=== PATIENT | female | born 1995 ===

== ENCOUNTER 2017-05-12 20:02 | Emergency (ER) | payer MEDICAID ==
[2017-05-12 20:02] VITALS: BMI 33.3
[2017-05-12 20:19] VITALS: BP 123/76; PULSE 108; RESP 18; TEMP 98.7; O2SAT 99
--- NOTE | 2017-05-12 21:15 | ED PDOC ---
HPI: Abdomen Time Seen by Provider: 05/12/17 20:50 Chief Complaint (Nursing): GI Problem Chief Complaint (Provider): vomiting History Per: Patient History/Exam Limitations: no limitations Onset/Duration Of Symptoms: Days (1) Current Symptoms Are (Timing): Still Present Location Of Pain/Discomfort: Epigastric, LUQ Quality Of Discomfort: Sharp, "Pain" Associated Symptoms: Nausea, Vomiting Additional History Per: Patient Additional Complaint(s): 21 y/o female presents for eval of multiple vomiting episodes today. Associated generalized abdominal cramping, multiple diarrhea episodes in the morning. Denies fever, chest pain, dysuria, hematuria, vaginal discharge. Last Menstral Period: current Past Medical History Reviewed: Historical Data, Nursing Documentation, Vital Signs Vital Signs: Last Vital Signs Temp 98.7 F 05/12/17 20:16 Pulse 108 H 05/12/17 20:16 Resp 18 05/12/17 20:16 BP 123/76 05/12/17 20:16 Pulse Ox 99 05/12/17 22:17 - Medical History PMH: No Chronic Diseases - Surgical History Surgical History: - Family History Family History: States: Unknown Family Hx - Home Medications Home Medications: Ambulatory Orders Medication Instructions Recorded Docusate Sodium/Ferrous Fumara 1 tab PO DAILY #30 tab 10/01/16 [Michi-Sequels 100 mg -150 mg] Ibuprofen [Motrin Tab] 800 mg PO Q8 PRN #30 tab 10/01/16 oxyCODONE/Acetaminophen [Percocet 1 ea PO Q4 PRN #24 tab 10/01/16 5/325 mg Tab] Dicyclomine [Bentyl] 20 mg PO TID #15 tab 05/12/17 Famotidine [Pepcid] 20 mg PO BID #10 tab 05/12/17 Ondansetron ODT [Zofran ODT] 4 mg PO Q8 PRN #10 odt 05/12/17 - Allergies Allergies/Adverse Reactions: Allergies Allergy/AdvReac Type Severity Reaction Status Date / Time Penicillins Allergy ITCHING Verified 09/27/16 07:39 Review of Systems ROS Statement: Except As Marked, All Systems Reviewed And Found Negative Gastrointestinal: Positive for: Nausea, Vomiting, Abdominal Pain, Diarrhea Physical Exam - Reviewed Nursing Documentation Reviewed: Yes Vital Signs Reviewed: Yes - Physical Exam Appears: Positive for: Well, Non-toxic, No Acute Distress Head Exam: Positive for: ATRAUMATIC, NORMAL INSPECTION, NORMOCEPHALIC Skin: Positive for: Normal Color Eye Exam: Positive for: Normal appearance ENT: Positive for: Normal ENT Inspection Cardiovascular/Chest: Positive for: Regular Rate, Rhythm Respiratory: Positive for: Normal Breath Sounds Gastrointestinal/Abdominal: Positive for: Bowel Sounds, Soft, Tenderness ( epigastric) Back: Positive for: Normal Inspection Extremity: Positive for: Normal ROM Neurologic/Psych: Positive for: Alert, Oriented - Laboratory Results Result Diagrams: 05/12/17 21:29 05/12/17 21:29 - ECG O2 Sat by Pulse Oximetry: 99 - Progress ED Course And Treament: labs, urine, IV fluids, IV pepcid, IV zofran On re-eval, patient tolerating PO. Patient educated on findings, discharged with rx Zofran, Pepcid, Bentyl. Advised fluids, bland diet. follow up PMD 2-3 days. Return ot ED for worsening/concerning symptoms. Disposition - Clinical Impression Clinical Impression: Gastroenteritis - Patient ED Disposition Is Patient to be Admitted: No Counseled Patient/Family Regarding: Studies Performed, Diagnosis, Need For Followup, Rx Given - Disposition Disposition: Routine/Home Disposition Time: 23:02 Condition: IMPROVED Prescriptions: Dicyclomine [Bentyl] 20 mg PO TID #15 tab Famotidine [Pepcid] 20 mg PO BID #10 tab Ondansetron ODT [Zofran ODT] 4 mg PO Q8 PRN #10 odt PRN Reason: Nausea/Vomiting Instructions: Gastroenteritis (ED) Print Language: NEPALI
[2017-05-12 21:39] LABS: BASO % 0.1 % (0.0-2.0); EOS % 0.4 % (0.0-4.0); HEMOGLOBIN 12.8 g/dL (12.0-16.0); LYMPH # 0.8 K/uL (1.0-4.3); LYMPH % 7.5 % (20.0-40.0); MEAN CELL VOLUME 78.5 fl (81.0-99.0); MEAN CORPUSCULAR HEMOGLOBIN 25.6 pg (27.0-31.0); MEAN CORPUSCULAR HGB CONC 32.6 g/dL (33.0-37.0); MEAN PLATELET VOLUME 8.5 fl (7.2-11.7); MONO # 0.7 K/uL (0.0-0.8); MONO % 6.5 % (0.0-10.0); NEUT # 9.6 K/uL (1.8-7.0); NEUT % 85.5 % (50.0-75.0); PLATELET COUNT 241 K/uL (130-400); RBC 4.99 Mil/uL (3.80-5.20); RED CELL DISTRIBUTION WIDTH 14.6 % (11.5-14.5); WHITE BLOOD COUNT 11.3 K/uL (4.8-10.8)
[2017-05-12 21:42] LABS: ALB/GLOB RATIO 1.3 (1.0-2.1); ALBUMIN 4.6 g/dL (3.5-5.0); ALT/SGPT 30 U/L (9-52); AST/SGOT 23 U/L (14-36); BLOOD UREA NITROGEN 14 mg/dl (7-17); CALCIUM 9.3 mg/dL (8.4-10.2); GFR AFRICAN-AMERICAN > 60; GFR NON-AFRICAN AMERICAN > 60; LIPASE 38 U/L (23-300)
[2017-05-12] MEDS: Sodium Chloride 0.9% 1,000 ML IV STA (21:45)
[2017-05-12 21:50] LABS: SQUAMOUS EPITHIAL 1 /hpf (0-5); URINE BILIRUBIN NEGATIVE (NEGATIVE); URINE BLOOD MODERATE (NEGATIVE); URINE CLARITY SLIGHTY-CLOUDY (Clear); URINE COLOR YELLOW (YELLOW); URINE GLUCOSE (UA) NEG (Normal); URINE LEUKOCYTE ESTERASE NEG Leu/uL (Negative); URINE NITRATE NEGATIVE (NEGATIVE); URINE PROTEIN 30 mg/dL (NEGATIVE); URINE UROBILINOGEN 0.2-1.0 mg/dL (0.2-1.0)
[2017-05-12 22:03] LABS: EOSINOPHIL 1 % (0-7); LYMPHOCYTE 7 % (20-50); MONOCYTE 2 % (0-10); NEUTROPHIL 90 % (42-75); PLATELET ESTIMATE NORMAL (NORMAL); TOTAL CELLS COUNTED 100
[2017-05-12 22:04] LABS: ANISOCYTOSIS SLIGHT; HYPOCHROMIC SLIGHT; LARGE PLATELETS PRESENT; TEARDROP CELLS SLIGHT
== END 2017-05-12 23:24 | disposition home or self-care (01) ==
LOC: H.ER 20:02
DX: K52.9 Noninfective gastroenteritis and colitis, unspecified (principal); Z88.0 Allergy status to penicillin

== ENCOUNTER 2017-11-13 11:27 | Emergency (ER) | payer MEDICAID ==
[2017-11-13 11:28] VITALS: BMI 33.3
[2017-11-13 11:39] VITALS: BP 115/67; PULSE 121; RESP 20; TEMP 101.9; O2SAT 100
[2017-11-13] MEDS ORDERED: Naproxen 500 MG TAB PO ONE ×2 (12:15→12:28)
--- NOTE | 2017-11-13 12:53 | ED PDOC ---
HPI: General Adult Time Seen by Provider: 11/13/17 12:00 Chief Complaint (Nursing): Flu-like Symptoms Chief Complaint (Provider): Flu-like Symptoms History Per: Patient History/Exam Limitations: no limitations Onset/Duration Of Symptoms: Days Current Symptoms Are (Timing): Still Present Additional Complaint(s): 22 year old female presents to the emergency department with a complaint of a headache, cold symptoms, and congestion for 3 days. Associated with cough, shortness of breath, and sputum. Reports temperature at home was 100.4 and has not received the flu shot. States over the counter medications has not helped with symptoms. Denies further medical complaints. Past Medical History Reviewed: Historical Data, Nursing Documentation, Vital Signs Vital Signs: Last Vital Signs Temp 101.9 F H 11/13/17 11:34 Pulse 121 H 11/13/17 11:34 Resp 20 11/13/17 11:34 BP 115/67 11/13/17 11:34 Pulse Ox 100 11/13/17 13:42 - Medical History PMH: No Chronic Diseases - Surgical History Surgical History: Other surgeries: Lumpectomy (When she was 9 years old) - Family History Family History: States: No Known Family Hx - Home Medications Home Medications: Ambulatory Orders Medication Instructions Recorded Docusate Sodium/Ferrous Fumara 1 tab PO DAILY #30 tab 10/01/16 [Michi-Sequels 100 mg -150 mg] Ibuprofen [Motrin Tab] 800 mg PO Q8 PRN #30 tab 10/01/16 oxyCODONE/Acetaminophen [Percocet 1 ea PO Q4 PRN #24 tab 10/01/16 5/325 mg Tab] Dicyclomine [Bentyl] 20 mg PO TID #15 tab 05/12/17 Famotidine [Pepcid] 20 mg PO BID #10 tab 05/12/17 Ondansetron ODT [Zofran ODT] 4 mg PO Q8 PRN #10 odt 05/12/17 Guaifenesin/Pseudoephedrne HCl 1 ter PO Q12H PRN #10 ter 11/13/17 [Mucinex D 600 mg-60 mg] Guaifenesin/Pseudoephedrne HCl 1 ter PO Q12H PRN #10 ter 11/13/17 [Mucinex D 600 mg-60 mg] - Allergies Allergies/Adverse Reactions: Allergies Allergy/AdvReac Type Severity Reaction Status Date / Time Penicillins Allergy ITCHING Verified 09/27/16 07:39 Review of Systems ROS Statement: Except As Marked, All Systems Reviewed And Found Negative (As per HPI, otherwise negative) Constitutional: Positive for: Fever ENT: Positive for: Nose Congestion Respiratory: Positive for: Cough, Shortness of Breath, Sputum Neurological: Positive for: Headache Physical Exam - Reviewed Nursing Documentation Reviewed: Yes Vital Signs Reviewed: Yes - Physical Exam Appears: Positive for: Non-toxic, Uncomfortable (Mild) Head Exam: Positive for: NORMAL INSPECTION, NORMOCEPHALIC Skin: Positive for: Normal Color, Warm, Dry ENT: Positive for: TM Is/Are (Sadia), Pharyngeal Erythema (Slight). Negative for: Normal ENT Inspection Neck: Positive for: Pain On Movement Of Neck (Tenderness to palpation of the neck ) Respiratory: Positive for: Normal Breath Sounds. Negative for: Accessory Muscle Use, Respiratory Distress Gastrointestinal/Abdominal: Positive for: Normal Exam, Soft. Negative for: Tenderness Extremity: Positive for: Normal ROM. Negative for: Pedal Edema Neurologic/Psych: Positive for: Alert, Oriented (x3) - ECG O2 Sat by Pulse Oximetry: 100 (RA) Pulse Ox Interpretation: Normal Medical Decision Making Medical Decision Making: Time: 1230 Initial Impression: Upper respiratory infection (URI) and possible influenza Initial Plan: --Neproxen 500 mg PO --Influenza A B --Reevaluation Time: 1442 --Negative for influenza A B Scribe~Attestation: Documented by Cara Merino, acting as a scribe for Shruthi Taveras MD. Provider Scribe~Attestation: All medical record entries made by the Scribe were at my direction and personally dictated by me. I have reviewed the chart and agree that the record accurately reflects my personal performance of the history, physical exam, medical decision making, and the department course for this patient. I have also personally directed, reviewed, and agree with the discharge instructions and disposition. Disposition - Clinical Impression Clinical Impression: URI (upper respiratory infection) - Patient ED Disposition Is Patient to be Admitted: No Doctor Will See Patient In The: Office Counseled Patient/Family Regarding: Diagnosis, Need For Followup - Disposition Referrals: [facility] [Outside] [facility] [Outside] [facility] [Outside] Disposition: Routine/Home Disposition Time: 13:44 Condition: GOOD Additional Instructions: No influenza Prescriptions: Guaifenesin/Pseudoephedrne HCl [Mucinex D 600 mg-60 mg] 1 ter PO Q12H PRN #10 ter PRN Reason: cough/congestion Guaifenesin/Pseudoephedrne HCl [Mucinex D 600 mg-60 mg] 1 ter PO Q12H PRN #10 ter PRN Reason: cough/congestion Instructions: Upper Respiratory Infection (ED) Forms: [facility] (Turkish), [facility] ED School/Work Excuse Print Language: BELARUSIAN - POA Present On Arrival: None
== END 2017-11-13 14:09 | disposition home or self-care (01) ==
LOC: H.ER 11:27
DX: J06.9 Acute upper respiratory infection, unspecified (principal); Z88.0 Allergy status to penicillin

== ENCOUNTER 2018-04-21 22:03 | Emergency (ER) | payer MEDICAID ==
[2018-04-21 22:03] VITALS: BMI 33.3
[2018-04-21 22:28] VITALS: BP 120/57; PULSE 75; RESP 18; TEMP 98; O2SAT 100
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
[2018-04-21] MEDS ORDERED: Silver Sulfadiazine 1% CREAM (50 gm) ONE (23:04)
[2018-04-21] MEDS ORDERED: Oxycodone/Acetaminophen 5/325 mg Tab ONE (23:22)
[2018-04-21] MEDS: Silver Sulfadiazine 1% CREAM (50 gm) TOP STA (23:26)
[2018-04-21] MEDS: Oxycodone/Acetaminophen 5/325 mg Tab PO STA (23:27)
== END 2018-04-22 00:11 | disposition home or self-care (01) ==
LOC: H.ER 22:03
DX: T25.222A Burn of second degree of left foot, initial encounter (principal); Y93.G3 Activity, cooking and baking; Y92.000 Kitchen of unspecified non-institutional (private) residence as the place of occurrence of the external cause; Z88.0 Allergy status to penicillin